=== PATIENT | female | born 1980 | race Two or more races ===

== ENCOUNTER 2017-03-07 19:22 | Emergency (ER) | payer OTHER ==
[~2017-03-07] VITALS: Ht 149.9 cm; Wt 114.3 kg
[2017-03-07 19:51] VITALS: BP 107/60
== END 2017-03-07 20:20 | disposition home or self-care (01) ==
LOC: ER 19:29
DX: F41.9 Anxiety disorder, unspecified (principal); Z87.442 Personal history of urinary calculi; Z98.890 Other specified postprocedural states
CPT/HCPCS: A4606; Z7610